=== PATIENT | female | born 1960 | race Caucasian/White ===

== ENCOUNTER → 2017-02-03 | Outpatient (CLI) | payer OTHER | END | disposition home or self-care (01) | LOC: CFH 15:42 | PROVIDERS: ATTEND Physician Assistant | DX: R60.0 Localized edema (principal); M79.605 Pain in left leg ==

== ENCOUNTER 2017-06-18 17:40 | Emergency (ER) | payer OTHER ==
[~2017-06-18] VITALS: Ht 165.1 cm; Wt 93.3 kg
[2017-06-18] MEDS ORDERED: ASPI-496 PO (18:24)
[2017-06-18] MEDS ORDERED: SIMV20TA3 PO (18:24)
[2017-06-18] MEDS ORDERED: ESTR0.5T PO (18:24)
[2017-06-18] MEDS ORDERED: CITA20TA5 PO (18:24)
[2017-06-18] MEDS ORDERED: OMEP-110 PO (18:24)
[2017-06-18] MEDS ORDERED: ONDANSETRON 2MG/ML, 2ML IVPush ONE (18:30)
[2017-06-18] MEDS ORDERED: MAALOX/HYOSCYAMINE/LIDOCAINE 45 ML BTL PO ONE (18:30)
[2017-06-18 18:39] LABS: BASOPHILS # (AUTO) 0.04 x10^3/uL (0-0.1); BASOPHILS % (AUTO) 1 % (0-1); EOSINOPHILS # (AUTO) 0.24 x10^3/uL (0-0.4); EOSINOPHILS % (AUTO) 3 % (1-7); LYMPHOCYTES % (AUTO) 25 % (22-44); MD NO; MEAN CORPUSCULAR HEMOGLOBIN 35.3 pg (27.0-34.8); MEAN CORPUSCULAR HGB CONC 33.6 g/dL (32.4-35.8); MEAN CORPUSCULAR VOLUME 105.2 fL (80-100); MEAN PLATELET VOLUME 9.3 fL (7.4-10.4); MONOCYTES # (AUTO) 0.67 x10^3/uL (0.2-0.8); MONOCYTES % (AUTO) 7 % (2-9); NEUTROPHILS # (AUTO) 6.16 x10^3/uL (1.8-6.8); NEUTROPHILS % (AUTO) 65 % (42-75); PLATELET COUNT 232 x10^3/uL (130-400); RED BLOOD COUNT 4.39 x10^6/uL (3.82-5.3); RED CELL DISTRIBUTION WIDTH 13.6 % (9.6-15.2)
[2017-06-18] MEDS ORDERED: MAALOX/HYOSCYAMINE/LIDOCAINE 45 ML BTL ONE (18:43)
[2017-06-18] MEDS ORDERED: ONDANSETRON ODT 4 MG ONE (18:43)
[2017-06-18 18:48] LABS: ALBUMIN 3.7 g/dL (3.4-5.0); ANION GAP 10 mmol/L (5-15); CALCIUM 9.3 mg/dL (8.5-10.1); CHLORIDE 105 mmol/L (98-107)
[2017-06-18 18:54] LABS: ALANINE AMINOTRANSFERASE 130 U/L (12-78); ALKALINE PHOSPHATASE 66 U/L (45-117); BILIRUBIN,TOTAL 0.3 mg/dL (0.2-1.0); CREATININE 0.64 mg/dL (0.55-1.02); TOTAL PROTEIN 7.4 g/dL (6.4-8.2); TROPONIN I < 0.015 ng/mL (0.000-0.045)
[2017-06-18] MEDS ORDERED: ONDANSETRON ODT 4 MG PO ONE (19:00)
[2017-06-18 19:48] VITALS: BP 139/87
== END 2017-06-18 19:51 | disposition home or self-care (01) ==
LOC: ED 19:22
DX: R07.89 Other chest pain (principal); I10 Essential (primary) hypertension; F17.200 Nicotine dependence, unspecified, uncomplicated; Z79.82 Long term (current) use of aspirin
CPT/HCPCS: 36415; 71046; 76700; 80053; 84484; 85025; 99285; Q0162